=== PATIENT | male | born 1990 | race African-American/Black ===

== ENCOUNTER 2022-01-01 12:52 | Emergency (ER) | payer OTHER ==
[~2022-01-01] VITALS: Ht 185.4 cm; Wt 63.5 kg
[2022-01-01 13:45] LABS: HEMATOCRIT 48.1 % (39.0-50.0); HEMOGLOBIN 15.4 g/dl (14.0-18.0); IMMATURE GRANULOCYTES 0.2 % (0.0-5.0); MEAN CELL VOLUME 96.8 fL CALC (80.0-100.0); NEUT# 8.96 thou/uL (1.82-7.42); RED BLOOD COUNT 4.97 mill/uL (4.70-6.10); RED CELL DISTRI WIDTH 12.2 % (11.5-15.5)
[2022-01-01 14:36] LABS: ALBUMIN 4.5 g/dL (3.2-5.0); ALKALINE PHOSPHATASE 74 u/l (38-126); ANION GAP 14 (6-22 (CALC)); BILIRUBIN, TOTAL 0.4 mg/dL (0.0-1.4); BUN 9 mg/dL (9-20); BUN/CREATININE RATIO 10 (12-20 (CALC)); CARBON DIOXIDE 26 mmol/l (22-30); CHLORIDE 105 mmol/l (95-108); CPK 153 u/l (52-200); CREATININE 0.9 mg/dL (0.7-1.3); GFR FOR AFR.AMER. > 60 ML/MIN (>=60 (CALC)); GFR OTHER RACES > 60 ML/MIN (>=60 (CALC)); LIPASE 52 u/l (23-300); POTASSIUM 4.4 mmol/l (3.5-5.1); SGOT/AST 28 u/l (17-59); SODIUM 140 mmol/l (137-146); TOTAL PROTEIN 8.2 g/dL (6.3-8.2)
[2022-01-01 14:39] LABS: D-DIMER 0.41 mg/L (0.19-0.60)
[2022-01-01 14:41] LABS: ACT PARTIAL THROMBO TIME 18.3 SECONDS (20.0-32.5)
[2022-01-01] MEDS ORDERED: MAGNESIUM OXID500 M1 PO (16:30)
[2022-01-01] MEDS ORDERED: VENTOLIN HFA108 MCG PO (16:30)
[2022-01-01] MEDS ORDERED: PREDNISONE20 MG PO (16:30)
[2022-01-01 16:35] VITALS: BP 121/85
== END 2022-01-01 16:47 | disposition home or self-care (01) | DRG 203 ==
LOC: ED 12:52
PROVIDERS: Internal Medicine
DX: J45.909 Unspecified asthma, uncomplicated (principal)
CPT/HCPCS: J3475